=== PATIENT | male | born 1985 | race Caucasian/White ===

== ENCOUNTER 2016-09-21 01:35 | Emergency (ER) | payer OTHER ==
[~2016-09-21] VITALS: Ht 190.5 cm; Wt 123.8 kg
[2016-09-21 01:41] VITALS: BP 132/85
--- NOTE | 2016-09-21 02:07 | NUR ---
PT TAKEN TO OF
--- NOTE | 2016-09-21 02:08 | NUR ---
Dr. Craft evaluating patient
--- NOTE | 2016-09-21 02:09 | NUR ---
PT TAKEN TO XRAY
[2016-09-21] MEDS ORDERED: KETOROLAC 30 MG/ML VIAL IM ONE (02:10)
[2016-09-21] MEDS ORDERED: HYDROcodone/APAP 5/325 MG 1 TAB TAB PO ONE (02:10)
--- NOTE | 2016-09-21 02:10 | NUR ---
31Y/M PATIENT PRESENTS TO ED WITH C/O LT. SHOULDER PAIN X 1 HR . PT STATES LEFT SHOULDER PAIN,S/P FALL IN THE STREET WHILE RUNNING 1 HR AGO . DENIES N/V/D; SKIN IS PINK/WARM/DRY; AAOX4 WITH EVEN AND STEADY GAIT; LUNGS CLEAR BL; HR EVEN AND REGULAR; PT DENIES ANY FEVER, CP, SOB, OR COUGH AT THIS TIME; PATIENT STATES PAIN OF 7/10 AT THIS TIME; VSS; PATIENT POSITIONED FOR COMFORT; ER MD MADE AWARE OF PT STATUS.
--- NOTE | 2016-09-21 02:17 | NUR ---
PT RETURN FROM XRAY
[2016-09-21 02:50] VITALS: BP 132/85
--- NOTE | 2016-09-21 02:50 | NUR ---
Patient discharged with v/s stable. Written and verbal after care instructions given and explained. Patient alert, oriented and verbalized understanding of instructions. Ambulatory with steady gait. All questions addressed prior to discharge. ID band removed. Patient advised to follow up with PMD. Rx of NORCO 5/325 MG, NAPROSYN 500 MG given. Patient educated on indication of medication including possible reaction and side effects. Opportunity to ask questions provided and answered.
== END 2016-09-21 02:50 | disposition home or self-care (01) ==
LOC: MED 01:35
DX: S46.919A Strain of unspecified muscle, fascia and tendon at shoulder and upper arm level, unspecified arm, initial encounter (principal); Z88.0 Allergy status to penicillin; W18.39XA Other fall on same level, initial encounter; Y93.02 Activity, running; Y92.410 Unspecified street and highway as the place of occurrence of the external cause; Y99.8 Other external cause status
CPT/HCPCS: 73030; 96372; 99284; J1885